=== PATIENT | male | born 1975 | race Caucasian/White ===

== ENCOUNTER 2017-12-19 20:10 | Emergency (ER) | payer OTHER | END 2017-12-20 03:17 | disposition home or self-care (01) | LOC: E/R 20:10 | DX: S00.31XA Abrasion of nose, initial encounter (principal); S00.81XA Abrasion of other part of head, initial encounter; R51 Headache; Y08.89XA Assault by other specified means, initial encounter | CPT/HCPCS: 70450; 70486; 99285-25 ==